=== PATIENT | female | born 1980 ===

== ENCOUNTER 2018-01-11 20:48 | Emergency (ER) | payer MEDICAID ==
[~2018-01-11 20:48] MED LIST: ACE500 PO; AMOX-559 PO; HYDR-4309 PO; IBUP-1618 PO; KET10 PO; PHEN118S56 PO; PROM-110 PO; TRAM-420 PO
--- NOTE | 2018-01-11 22:22 | ER Report ---
History and Physical Time Seen By MD: 22:22 Hx. of Stated Complaint: COUGH, FEVER, NAUSEA, HEADACHE HPI/ROS This is an otherwise healthy 37 female who presents to the emergency department with 10 days of cough and fever. Also with myalgias and headache. No neck pain or stiffness or meningismus. Not worse headache of life. She thinks the headache is from her coughing. Does not smoke and no history of asthma. No PE risk factors. No chest pain other than with coughing. No abdominal pain, nausea vomiting diarrhea. Remainder of the 14 system rev: Yes Allergies: Coded Allergies: No Known Drug Allergies (Verified , 01/11/18) Home Meds Discontinued Reported Medications Tramadol Hcl (TRAMADOL HCL) 50 Mg Tablet, 50-100 MG PO Q4-6H, TAB 01/16/16 Discontinued Scripts Promethazine Hcl (PROMETHAZINE HCL) 25 Mg Tablet, 25 MG PO Q8H Y for NAUSEA/ VOMITING, #20 TAB 0 Refills Prov:UMER LEE MD 01/16/16 Ketorolac Tromethamine (KETOROLAC TROMETHAMINE) 10 Mg Tab, 10 MG PO Q6H Y for HEADACHE, #12 TAB 0 Refills Prov:UMER LEE MD 01/16/16 Reviewed Nurses Notes: Yes Old Medical Records Reviewed: Yes Hx Smoking: No Smoking Status: Former Smoker Exposure to Second Hand Smoke?: No Hx Substance Use Disorder: No Hx Alcohol Use: Yes (OCC) Constitutional Vital Sign - Last 24 Hours 01/11/18 01/11/18 01/11/18 01/11/18 21:03 22:30 22:30 22:37 Temp 99.1 Pulse 100 89 89 Resp 16 18 18 B/P (MAP) 126/80 Pulse Ox 95 97 O2 Delivery Room Air Room Air Physical Exam General Appearance: The patient is alert, has no immediate need for airway protection and no current signs of toxicity. Eyes: Pupils equal and round no injection. Respiratory: Chest is non tender, diffuse crackles and scant wheezing throughout Cardiac: regular rate and rhythm Gastrointestinal: Abdomen is soft and non tender, no masses, bowel sounds normal. Neck: Neck is supple and non tender. Skin: No rashes or lesions. DIFFERENTIAL DIAGNOSIS: After history and physical exam differential diagnosis was considered shortness of breath including but not limited to pulmonary infectious process, COPD, asthma, pulmonary embolus and congestive heart failure. Medical Decision Making Data Points Laboratory Hematology Test 01/11/18 21:09 Influenza Virus Type A (PCR) Negative (NEGATIVE) Influenza Virus Type B (PCR) Negative (NEGATIVE) Chemistry Test 01/11/18 21:09 Influenza Virus Type A (PCR) Negative (NEGATIVE) Influenza Virus Type B (PCR) Negative (NEGATIVE) ED Course/Re-evaluation ED Course This is an otherwise healthy 37-year-old female who presents to the emergency department with 10 days of worsening cough and flulike symptoms. No chest pain other than when she has a cough. No PE risk factors. He does not smoke nor does she have a history of asthma. He had diffuse crackles and wheezing on lung exam so a chest x-ray was obtained. There is no evidence of consolidation or infiltrate. She also complained of a migraine headache which she thinks has been spurred on by coughing. It is not the worst headache of her life. She has no meningismus. Her headache improved with IM Toradol. She was also given a nebulizer treatment for her symptoms. Given her length of symptoms and her continued cough and subjective fever, I will treat her with a Z-Juan for an atypical pneumonia. Influenza test is negative. Decision to Disposition Date: Jan 11, 2018 Decision to Disposition Time: 23:15 Depart Departure Latest Vital Signs Vital Signs Date Time Temp Pulse Resp B/P (MAP) Pulse Ox O2 Delivery O2 Flow Rate FiO2 01/11/18 22:37 89 18 01/11/18 22:30 97 Room Air 01/11/18 21:03 99.1 126/80 Impression: Primary Impression: Atypical pneumonia Condition: Improved Disposition: HOME OR SELF-CARE Referrals: JAIME GUZMAN MD (PCP) New Scripts Azithromycin (ZITHROMAX) 250 Mg Tablet 1 TAB PO QDAY for 4 Days, #4 TAB Prov: LAYO JEAN MD 01/11/18 Patient Instructions: Community Acquired Pneumonia (DC) LAYO JEAN MD Jan 11, 2018 22:22
[2018-01-11] MEDS ORDERED: ALBUTEROL/IPRATROPIUM 3 ML NEB NEB ONE (22:25)
[2018-01-11] MEDS ORDERED: guaiFENesin/P-EPHED 1 EA TABCR PO ONE (22:25)
[2018-01-11] MEDS ORDERED: KETOROLAC 60 MG/2 ML VIAL IM ONE (22:25)
[2018-01-11] MEDS ORDERED: AZIT-1 PO (23:19)
[2018-01-11] MEDS ORDERED: AZITHROMYCIN 250 MG TAB PO ONE (23:20)
[2018-01-11 23:30] VITALS: BP 147/57
--- NOTE | 2018-01-12 00:53 | RADIOLOGY IMAGING REPORT ---
FACILITY: [facility] PATIENT NAME: Yareli Fernandez : 1980 MR: [id number] V: [id number] EXAM DATE: ORDERING PHYSICIAN: LAYO JEAN TECHNOLOGIST: Location: [facility] - [place] Patient: Yareli Fernandez : 1980 Visit/Account:[id number] Date of Sevice: 01/11/2018 CHEST PA AND LATERAL 01/11/2018 10:22 PM. INDICATION: cough and fever COMPARISON: 12/15/2006. FINDINGS: Lungs are well-expanded. The lungs are clear. No pneumothorax or pleural effusion. Pulmo nary vasculature is unremarkable. Heart size is normal. IMPRESSION: No acute cardiopulmonary abnormality. Report Dictated By: Jesús Corral MD at 01/11/2018 11:32 PM Report E-Signed By: Jesús Corral MD at 01/11/2018 11:33 PM WSN:[id number]
== END 2018-01-11 23:45 | disposition home or self-care (01) ==
LOC: ER 21:16
DX: J18.9 Pneumonia, unspecified organism (principal)
CPT/HCPCS: 71046; 87502; 94640; 96372; 99283; J1885; J7620; Q0144